=== PATIENT | female | born 1950 | race Caucasian/White ===

== ENCOUNTER 2021-01-03 06:25 | Day surgery (SDC) | payer MEDICARE ==
[2021-01-02 10:11] LABS: Absolute Lymphocytes (CBC) 1.4 K/uL (0.7-4.9); Basophils % 0.4 % (0-1.3); Hematocrit 41.2 % (36.0-45.0); Lymphocytes % 21.5 % (15.3-44.8); MPV 9.3 fL (7.6-11.3); RBC Red Blood Cell Count 4.69 M/uL (3.86-4.86)
[2021-01-02 10:13] LABS: Protime INR 0.87
[2021-01-02 10:18] LABS: Potassium 4.1 mmol/L (3.5-5.1)
--- NOTE | 2021-01-02 10:36 | RAD REPORT ---
EXAM DESCRIPTION: Thelma Kirkpatrick (2 Views)01/02/2021 10:01 am CLINICAL HISTORY: Preop cardiac catheterization. Hypertension COMPARISON: 2007 FINDINGS: The lungs appear clear of acute infiltrate. The heart is normal size IMPRESSION: No acute abnormalities displayed
[2021-01-03] MEDS ORDERED: NA CHLORIDE 0.9% 500 ML ONE (06:56)
[2021-01-03] MEDS ORDERED: HEPA 1000U/500MLS 1,000 UNIT/500 ML BAG IV ONE (07:15)
[2021-01-03] MEDS ORDERED: LIDOCAINE 1% 20 ML MDV ONE (07:15)
[2021-01-03] MEDS ORDERED: NA CHLORIDE 0.9% 0 ML ONE (07:29)
[2021-01-03] MEDS ORDERED: ATROPINE SULF 1 MG/10 ML SYR IV ONE (07:29)
[2021-01-03] MEDS ORDERED: FENTANYL CITR 100 MCG/2 ML ONE (07:29)
[2021-01-03] MEDS ORDERED: MIDAZOLAM HCL 2 MG/2 ML INJ ONE (07:29)
[2021-01-03] MEDS ORDERED: cloNIDine HCL 0.1 MG TAB ONE ×2 (07:39→09:47)
[2021-01-03 09:23] VITALS: O2SAT 98
[2021-01-03 09:55] VITALS: BP 163/75
[2021-01-03 09:56] VITALS: TEMP 97.1
--- NOTE | 2021-01-03 18:09 | OP ---
Date of Procedure: 01/03/2021 Surgeon: Abel Bhandari MD Bat Carrier: Mr. Jon Foss. Indications For Procedure: She is a patient of Dr. Adal Her in the [facility]. I had seen her i n the office after Dr. Her has sent to my office for chest pain and abnormal EKG, possible unsta ble angina. The patient brought to the irrigation laborer today as an outpatient. Procedures Performed: She underwent a left heart catheterization, selective coronary arteriogram, le ft ventriculogram, left ventricular end-diastolic pressure measurements. Description Of Procedure: A 6-[place] sheath was introduced in the right common femoral artery succes sfully using the Seldinger technique and 10 cc of lidocaine. Angiography there was normal. We had p ut a 6-[place] sheath using Seldinger technique with 10 cc of Xylocaine. The patient had been prepped and draped in routine sterile fashion. Given Versed and fentanyl for sedation. A 6-[place]ian catheter s, JL4 and JR4 were used to cannulate the left main and right main respectively. The JR4 was used to do an LV-gram. Her LV-gram was normal. Left ventricular end-diastolic pressure was 15 mmHg. EF was about 65%. She was found to have a normal left main, normal circumflex. She was very left dominant , 20% proximal LAD. She had an RCA that is very small with diffuse disease, 1 mm vessel. There were no complications. Blood Loss: 5 cc. Postoperative Diagnoses: 1.Hypertension, poorly controlled/. 2.Mild coronary artery disease. Plan: I am going to continue her medical therapy. I am going to double her metoprolol to 50 mg b.i. d. She will be at bedrest today for 2 hours and then she can go home. I will see her in the office in 2 weeks. Anesthesia: Total conscious sedation was 45 minutes. NB/MODL Voice ID: [id number] Report ID: [id number]
== END 2021-01-03 10:40 | disposition home or self-care (01) ==
LOC: CCL 06:25
DX: I25.110 Atherosclerotic heart disease of native coronary artery with unstable angina pectoris (principal); I11.0 Hypertensive heart disease with heart failure; I50.32 Chronic diastolic (congestive) heart failure; E78.5 Hyperlipidemia, unspecified; Z20.822 Contact with and (suspected) exposure to COVID-19; Z88.0 Allergy status to penicillin; Z82.49 Family history of ischemic heart disease and other diseases of the circulatory system
CPT/HCPCS: 85025; 80048; 36415; 85610; 85730; 71046; 93458; U0003; C1893; C1760; J2250; J3010; J7040; J1644; J0583